=== PATIENT | male | born 1965 | race Caucasian/White ===

== ENCOUNTER 2020-11-01 00:53 | Emergency (ER) | payer BC, MEDICAID ==
[~2020-11-01] VITALS: Ht 172.7 cm; Wt 72.0 kg
[2020-11-01 02:02] LABS: BASOPHILS # (AUTO) 0.1 X10'3 (0-0.2); BASOPHILS % (AUTO) 0.7 % (0-1); EOSINOPHILS % (AUTO) 0.2 % (0-6); HEMATOCRIT 44.8 % (42.0-52.0); HEMOGLOBIN 15.3 g/dl (14.0-17.9); LYMPHOCYTES # (AUTO) 2.4 X10'3 (1.1-4.8); LYMPHOCYTES % (AUTO) 22.4 % (21-51); MEAN CORPUSCULAR HEMOGLOBIN 31.6 PG (27.0-31.0); MEAN CORPUSCULAR HGB CONC 34.2 g/dL (33.0-36.5); MEAN CORPUSCULAR VOLUME 92.4 FL (78-98); MEAN PLATELET VOLUME 7.6 FL (7.4-10.4); MONOCYTES # (AUTO) 0.4 X10'3 (0-0.9); MONOCYTES % (AUTO) 3.6 % (2-12); NEUTROPHILS # (AUTO) 7.7 X10'3 (1.8-7.7); NEUTROPHILS % (AUTO) 73.1 % (42-75); PLATELET COUNT 286 X10'3 (140-440); RED BLOOD COUNT 4.85 X10'6 (4.70-6.10); RED CELL DISTRIBUTION WIDTH 12.8 % (11.5-14.5); WHITE BLOOD COUNT 10.5 X10'3 (4.5-11.0)
[2020-11-01 02:11] LABS: ALANINE AMINOTRANSFERASE 46 U/L (12-78); ALBUMIN 4.1 G/DL (3.4-5.0); ALBUMIN/GLOBULIN RATIO 1.1 (1.1-1.5); ALKALINE PHOSPHATASE 87 IU/L (46-116); ANION GAP 11 (8-16); ASPARTATE AMINO TRANSFERASE 26 U/L (10-37); BILIRUBIN,TOTAL 0.5 MG/DL (0.1-1.0); BLOOD UREA NITROGEN 23 MG/DL (7-18); BUN/CREATININE RATIO 21.7 (5.4-32.0); CALCIUM 9.1 MG/DL (8.5-10.1); CHLORIDE 106 MMOL/L (99-107); CREATININE 1.06 MG/DL (0.60-1.10); GLUCOSE 137 MG/DL (70-104); LIPASE 104 U/L (73-393); POTASSIUM 4.1 MMOL/L (3.5-5.1); SODIUM 142 MMOL/L (135-145); TOTAL CARBON DIOXIDE 24.6 MMOL/L (24-32); TOTAL PROTEIN 7.7 G/DL (6.4-8.2); eGFR 72 ML/MIN
--- NOTE | 2020-11-01 02:16 | NUR ---
patient to [facility].
[2020-11-01] MEDS ORDERED: morphine 4 MG/ML inj SYRINge IV ONE (02:25)
[2020-11-01] MEDS ORDERED: ondansetron/PF 4mg/2ml inj IV ONE (02:25)
--- NOTE | 2020-11-01 02:55 | NUR ---
magnetic resonance technologist at bedside. Addendum: 11/01/20 at 0308 by ASTPATI wrong patient.
--- NOTE | 2020-11-01 02:58 | NUR ---
patient to ct.
[2020-11-01 03:14] LABS: CLARITY,URINE CLOUDY (Clear); COLOR,URINE YELLOW (Yellow); GLUCOSE, URINE NEGATIVE (Neg); KETONES,URINE 15 mg/dl (Neg); LEUKOCYTE ESTERASE ,URINE NEGATIVE (Neg); NITRITES, URINE NEGATIVE (Neg); OCCULT BLOOD,URINE LARGE (Neg); PH,URINE 6.5 (4.8-8.0); PROTEIN,URINE TRACE mg/dl (Neg)
[2020-11-01 03:29] LABS: UA COLLECTION TYPE CLN CATCH MIDSTREAM
[2020-11-01 03:30] LABS: BACTERIA,URINE NONE SEEN /HPF (Neg); RBC,URINE TNTC /HPF (0-2); SQUAMOUS EPITHELIAL CELL,UR NONE SEEN /LPF (FEW); WBC,URINE 0-4 /HPF (0-4)
[2020-11-01] MEDS ORDERED: HYDR-3965 PO (04:27)
[2020-11-01 04:40] VITALS: BP 156/75
== END 2020-11-01 04:42 | disposition home or self-care (01) ==
LOC: ER 00:54
DX: N20.0 Calculus of kidney (principal); R10.84 Generalized abdominal pain; R11.2 Nausea with vomiting, unspecified; F17.200 Nicotine dependence, unspecified, uncomplicated; Z72.89 Other problems related to lifestyle
CPT/HCPCS: 36415; 74176; 80053; 81001; 83690; 85025; 96374; 96375; 99284; J2270; J2405

== ENCOUNTER 2020-11-11 21:49 | Emergency (ER) | payer BC ==
[~2020-11-11] VITALS: Ht 172.7 cm; Wt 77.3 kg
[~2020-11-11 21:49] MED LIST: HYDR-3965 PO
[2020-11-12 00:25] LABS: CLARITY,URINE CLEAR (Clear); COLOR,URINE YELLOW (Yellow); GLUCOSE, URINE NEGATIVE (Neg); KETONES,URINE NEGATIVE (Neg); LEUKOCYTE ESTERASE ,URINE NEGATIVE (Neg); NITRITES, URINE NEGATIVE (Neg); OCCULT BLOOD,URINE LARGE (Neg); PH,URINE 5.5 (4.8-8.0); PROTEIN,URINE NEGATIVE (Neg)
[2020-11-12 00:26] LABS: UA COLLECTION TYPE CLN CATCH MIDSTREAM
[2020-11-12 00:31] LABS: BACTERIA,URINE NONE SEEN /HPF (Neg); RBC,URINE 20-50 /HPF (0-2); WBC,URINE 0-4 /HPF (0-4)
[2020-11-12 00:32] LABS: MUCUS STRANDS FEW /LPF (Neg); SQUAMOUS EPITHELIAL CELL,UR FEW /LPF (FEW)
[2020-11-12] MEDS ORDERED: ONDA4TAB12 PO (00:42)
[2020-11-12] MEDS ORDERED: HYDR-3965 PO (00:42)
[2020-11-12] MEDS ORDERED: FLO0.4C PO (00:42)
--- NOTE | 2020-11-12 00:56 | NUR ---
pt d/c by provider prior to international representative
[2020-11-12 00:57] VITALS: BP 126/98
== END 2020-11-12 00:59 | disposition home or self-care (01) ==
LOC: ER 21:49
DX: N20.0 Calculus of kidney (principal); Z72.89 Other problems related to lifestyle; Z79.899 Other long term (current) drug therapy
CPT/HCPCS: 81001; 81003; 99283